=== PATIENT | female | born 1990 | race Caucasian/White ===

== ENCOUNTER 2017-12-25 17:40 | Inpatient (IN) | payer OTHER ==
[~2017-12-25] VITALS: Ht 167.6 cm; Wt 82.0 kg
[~2017-12-25 17:40] MED LIST: PRENATAL CAPLE1 EACH PO
--- NOTE | 2017-12-26 08:11 | PR ---
[facility] [address] [facility] [place] [address] Signed PP Progress Notes Datetime Report Generated by CPN: 12/26/2017 08:10 SUBJECTIVE: [id number] Pain: Within normal limits Vital Signs: [id number] Vital Signs: Reviewed Notable Details: intermittent mild HTN EXAM: [id number] Abdomen/Uterus: Abnormal Lochia: Normal Extremities: Normal Progress: Normal Exam Comments: Fundus firm, NT @ U-1 H/H 12.5/35.7, WBC 14.4, plat 208k IMPRESSION/PLAN/PROCEDURES: [id number] Impression: Normal progression Plan: Discharge Procedures: None Progress Notes: Doing well. She desires D/C today. Signing Physician: Ramona Cast MD Copies: ~ *Electronically Signed* 12/26/17 0810 RAMONA CAST MD PATIENT NAME: DEVANTE RAMEY RAMONA PROGRESS NOTE DATE OF : 89 PHYSICIAN: RAMONA CAST MD RPT #: [id number] REPORT IS CONFIDENTIAL AND NOT TO BE RELEASED WITHOUT AUTHORIZATION
== END 2017-12-26 16:00 | disposition home or self-care (01) | DRG 775 ==
LOC: FBCO 17:40 → FBC 17:55
PROVIDERS: ADMIT Obstetrics & Gynecology
PROC: 10E0XZZ Delivery of Products of Conception, External Approach (ICD-10-PCS; principal; 2017-12-25)
PROC: 0KQM0ZZ Repair Perineum Muscle, Open Approach (ICD-10-PCS; 2017-12-25)
PROC: 10907ZC Drainage of Amniotic Fluid, Therapeutic from Products of Conception, Via Natural or Artificial Opening (ICD-10-PCS; 2017-12-25)
PROC: 00HU33Z Insertion of Infusion Device into Spinal Canal, Percutaneous Approach (ICD-10-PCS; 2017-12-25)
PROC: 3E0R3BZ Introduction of Anesthetic Agent into Spinal Canal, Percutaneous Approach (ICD-10-PCS; 2017-12-25)
DX: O70.1 Second degree perineal laceration during delivery (principal); Z37.0 Single live birth; Z3A.39 39 weeks gestation of pregnancy
CPT/HCPCS: 36415; 85027; 86850; 86900; 86901; J2590; J7120

== ENCOUNTER 2023-01-20 05:55 | Day surgery (SDC) | payer OTHER ==
[2023-01-12 08:10] VITALS: BP 129/86
[~2023-01-20] VITALS: Ht 167.6 cm; Wt 72.7 kg
[~2023-01-20 05:55] MED LIST changes: +MULTI VITAMIN1 EACH PO
[2023-01-20 06:09] VITALS: BP 112/99
[2023-01-20] MEDS ORDERED: IBUPROFEN600 MG PO (08:34)
[2023-01-20] MEDS ORDERED: OXYCODON-ACETA1 EAC2 PO (08:35)
[2023-01-20] MEDS ORDERED: ACETAMINOPHEN500 MG PO (08:35)
[2023-01-20 09:06] VITALS: BP 98/66
--- NOTE | 2023-01-20 09:08 | NUR ---
01/20/23 0908 Fernanda Rodríguez Basilia 0823- PT ARRIVED TO PACU WITH OPA IN PLACE, O2 MASK AT 6L. PT NON RESPONSIVE, PUPILS PIN POINT. DRESSING IN PLACE TO RIGHT SHOULDER BLADE, CDI. 0830- PT AWAKE, OPA AND O2 REMOVED. PT ASKING QUESTIONS, DENIES PAIN OR NAUSEA. 0835- WATER PROVIDED TO PT, NO NAUSEA, TOLERATED WELL. CONTINUE TO MONITOR. 0857- ALERT AND ORIENTED, ABLE TO STAND AT BEDSIDE TO DRESS. PT READY TO GO HOME, VERBALIZED UNDERSTANDING OF INSTRUCTIONS. TAKEN TO CAR VIA WHEEL CHAIR.
--- NOTE | 2023-01-20 11:01 | NUR ---
PT EXPRESSED NERVOUSNESS ABOUT SEDATION. MOTOR VEHICLE REPRESENTATIVE HAD ALREADY BEEN IN TO VISIT. STATED SHE DIDN'T HAVE ANY QUESTIONS BUT WAS NERVOUS. PROVIDED WORDS OF COMFORT AND ASSURANCE. PRAYED. GAVE PAGER TO COMPLEX MANAGER.
--- NOTE | 2023-01-21 11:02 | OR ---
[facility] [address] [place], [place] [address] Signed DATE OF OPERATION: 01/20/2023 SURGEON: Joana Amador MD PREOPERATIVE DIAGNOSIS: Soft tissue mass, right posterior thorax, scapular area, symptomatic. POSTOPERATIVE DIAGNOSIS: 5 cm subfascial lipomatous mass, right posterior thorax. PROCEDURE: Excision of soft tissue mass, right posterior thorax (subfascial) 5 cm in size. ANESTHESIA: Local with monitored anesthesia care, Joana Quevedo CRNA and local 10 mL of 0.25% Marcaine with epinephrine. INDICATION: This 33-year-old white woman is a patient of JESSICA Sánchez. She has had increasing pain in the right posterior scapular area related to a soft tissue mass. An ultrasound was performed in May of 2022 under the direction of her primary provider JESSICA Sánchez confirming a 4.8 cm isoechoic mass, most likely a lipoma. She has been offered resection of the soft tissue mass. She understands the risk of bleeding, infection, recurrence and need for additional treatment should malignancy ultimately be identified. Understanding that, she wished to proceed. FINDINGS: Indeed the mass was adjacent to the muscle of the latissimus dorsi. Complete excision was undertaken. It was well defined and most consistent with a lipoma. It was subfascial. It measured 5 cm grossly. DESCRIPTION OF PROCEDURE: The patient was brought to the operating room, placed in the lateral decubitus position right side up. She was given intravenous sedation with propofol infusional technique. The right posterior thorax had previously been marked as to the location of the soft tissue mass. The area was prepared with a chlorhexidine solution. Preoperative antibiotic Ancef was given and sequential compression device stockings were used. Careful definition of the Serene's lines was undertaken in this somewhat ambiguous area to allow for cosmetic incision. This was marked directly over the mass. Electronically Signed By: JOANA AMADOR MD 01/21/23 1102 PATIENT NAME: DEVANTE RAMEY OPERATIVE REPORT DATE OF : [birth year] REPORT #: [id number] PHYSICIAN: JOANA AMADOR MD PCP: PIERCE DANIEL REPORT IS CONFIDENTIAL AND NOT TO BE RELEASED WITHOUT AUTHORIZATION [facility] [address] [place], [place] [address] Signed A few mL of 0.25% Marcaine with epinephrine was injected locally. An incision was made with a 15 blade, transecting the dermis. The subcutaneous tissue was carefully divided with electrocautery ultimately revealing the fascial layer which was incised carefully and retraction undertaken showed a well-formed lipomatous mass. Dissection was carried with meticulous care down to the posterior thoracic fascia noting that the lipomatous mass was adherent to the latissimus dorsi muscle. This was dissected free with all due care ultimately excised completely. It was measured at 5 cm. The remaining 8 mL of Marcaine anesthetic was injected locally. The wound was closed in layers of interrupted 2-0 Vicryl and a running subcuticular 3-0 Vicryl for the skin. Steri-Strips were applied as was Acticoat dressing. Examination of the mass showed it to be a well circumscribed and encapsulated lipoma. It was measured at 5 cm. The patient was returned to the supine position and taken to the recovery room in good condition having suffered no complications. Sponge, needle, and instrument counts were reported as correct x3. MD GABY Babin/MODL /[id number] cc: JESSICA Sánchez Copies: PIERCE DANIEL ~ Electronically Signed By: JOANA AMADOR MD 01/21/23 1102 PATIENT NAME: DEVANTE RAMEY OPERATIVE REPORT DATE OF : [birth year] REPORT #: [id number] PHYSICIAN: JOANA AMADOR MD PCP: PIERCE DANIEL REPORT IS CONFIDENTIAL AND NOT TO BE RELEASED WITHOUT AUTHORIZATION
--- NOTE | 2023-01-24 18:00 | PATH ---
[facility] [address] [facility] [place] [address] Signed SPECIMEN(S): A RIGHT POSTERIOR THORAX SPECIMEN SOURCE: A. RIGHT POSTERIOR THORAX CLINICAL HISTORY: Soft tissue mass right posterior thorax. FINAL PATHOLOGIC DIAGNOSIS: Right posterior thorax: - [place] lobulated adipose tissue consistent with lipoma. JVR:mfr:[id number] MICROSCOPIC EXAMINATION: Histologic sections of all submitted blocks are examined by light microscopy. These findings, together with the gross examination, support the pathologic diagnosis. GROSS DESCRIPTION: The specimen, labeled and designated "Sharp, right posterior thorax," is received in formalin and consists of a single fragment of yellow lobulated adipose tissue measuring 4.8 x 3.4 x 1.9 cm and weighing 13.3 g. No skin is identified. The external surface is inked blue. The tissue is serially sectioned to reveal yellow lobular cut surfaces with no areas of hemorrhage or necrosis identified. Manager Baby sections are submitted in (A1-A2). GABY (under the direct supervision of a pathologist) The Gross Description was prepared using a voice recognition system. The report was reviewed for accuracy; however, sound-alike word errors, addition and/or deletions may occur. If there is any question about this report, please contact Client Services. PERFORMING LABORATORY: Technical component was performed by [facility], [address] [place] [id number] (CLIA# [id number]). Professional interpretation was performed by [facility], [address] [place] [id number] (CLIA#: [id number]). Diagnostician: Jose Matthews MD Pathologist Electronically Signed 01/24/2023 PATIENT NAME: DEVANTE RAMEY PATHOLOGY DATE OF : 89 REPORT #: [id number] PHYSICIAN: ROBIN PATHOLOGY PCP: PIERCE DANIEL REPORT IS CONFIDENTIAL AND NOT TO BE RELEASED WITHOUT AUTHORIZATION [address] [address] Signed Copies: ~ PATIENT NAME: DEVANTE RAMEY PATHOLOGY DATE OF : [birth year] REPORT #: [id number] PHYSICIAN: ROBIN PATHOLOGY PCP: PIERCE DANIEL REPORT IS CONFIDENTIAL AND NOT TO BE RELEASED WITHOUT AUTHORIZATION
== END 2023-01-20 08:57 | disposition home or self-care (01) ==
LOC: DS 05:55
PROVIDERS: ATTEND Surgery
PROC: 0JB70ZZ Excision of Back Subcutaneous Tissue and Fascia, Open Approach (ICD-10-PCS; principal; 2023-01-20 07:30)
DX: D17.4 Benign lipomatous neoplasm of intrathoracic organs (principal)
CPT/HCPCS: 00300; J1100; J1885; J2250; J2405; J2704; J2765; J3010; J7121